=== PATIENT | female | born 1965 | race African-American/Black ===

== ENCOUNTER 2017-05-28 21:55 | Observation (INO) | payer OTHER ==
[~2017-05-28] VITALS: Ht 157.5 cm; Wt 67.7 kg
[~2017-05-28 21:55] MED LIST: AUGMENTIN875 MG PO; CIPRO500 MG PO; LISINOPRIL20 MG PO; METFORMIN HCL500 M4 PO; NORVASC2.5 MG PO; NORVASC5 MG PO
[2017-05-28 22:17] LABS: APPEARANCE CLOUDY ((CLEAR)); BILIRUBIN NEGATIVE; BLOOD NEGATIVE; COLOR YELLOW ((YELLOW)); GLUCOSE (STRIP) NEGATIVE; KETONES NEGATIVE; LEUKOCYTES TRACE; NITRITE NEGATIVE; PROTEIN (STRIP) 30; SPECIFIC GRAVITY 1.016 (1.000-1.030); UROBILINOGEN 0.2 MG/DL (0.2-1.0)
[2017-05-28 22:58] LABS: BACTERIA 3+ /HPF; EPITHELIAL CELLS 2+ /HPF; MUCUS NONE SEEN /LPF; RED BLOOD CELLS 0-5 /HPF (0-5); UCUL ADDED? YES
[2017-05-28 23:02] LABS: HEMATOCRIT 34.3 % (36.0-46.0); HEMOGLOBIN 11.9 G/DL (11.9-15.5); MCH 32.2 PG (29.0-34.0); MCHC 34.7 G/DL (30.0-36.0); PLATELET COUNT 394 K/uL (156-360); RBC DIS.WIDTH-CV 12.7 % (11.8-14.6); RBC DIS.WIDTH-SD 43.2 % (39-53); RED BLOOD COUNT 3.69 M/uL (3.80-5.20); WHITE BLOOD COUNT 5.9 K/uL (4.1-10.2)
[2017-05-28 23:11] LABS: ALBUMIN 4.6 g/dL (3.2-4.8)
[2017-05-28 23:12] LABS: CHLORIDE 96 mEq/L (99-109); POTASSIUM 2.8 mEq/L (3.7-5.4); SODIUM 140 mEq/L (136-147)
[2017-05-28 23:14] LABS: GLUCOSE 167 mg/dL (70-99); TOTAL PROTEIN 7.9 g/dL (6.4-8.3)
[2017-05-28 23:16] LABS: TOTAL BILIRUBIN 0.3 mg/dL (0.0-1.0)
[2017-05-28 23:17] LABS: ALKALINE PHOSPHATASE 117 IU/L (3-129)
[2017-05-28 23:18] LABS: CREATININE 1.4 mg/dL (0.6-1.3); GFR ESTIMATE (CALCULATED) 51 mL/min/
[2017-05-28 23:19] LABS: AST (GOT) 24 IU/L (2-34); DIRECT BILIRUBIN 0.2 mg/dL (0.0-0.3); UREA NITROGEN (BUN) 17 mg/dL (9-23)
[2017-05-28 23:20] LABS: ALT (GPT) 26 IU/L (3-49)
[2017-05-28 23:21] LABS: LIPASE 83 U/L (1.0-51.0)
[2017-05-28 23:23] LABS: TROP-I INTERPRETATION NEGATIVE; TROPONIN-I 0.01 ng/mL (0.0-0.30)
[2017-05-29] MEDS ORDERED: ALIVE WOMEN'S1 EACH PO (00:48)
[2017-05-29] MEDS ORDERED: AMLODIPINE BESYL5 MG PO (00:48)
[2017-05-29] MEDS ORDERED: MELATONIN10 M1 PO (00:48)
[2017-05-29] MEDS ORDERED: ABILIFY2 MG PO (00:49)
[2017-05-29] MEDS ORDERED: SERTRALINE HCL25 MG PO (00:50)
[2017-05-29] MEDS ORDERED: ABILIFY5 MG PO (00:50)
[2017-05-29] MEDS ORDERED: DIOVAN160 MG PO (00:50)
[2017-05-29 04:19] VITALS: BP 162/84
[2017-05-29 06:32] LABS: CHLORIDE 100 MEQ/L (99-109); CREATININE 1.2 MG/DL (0.6-1.3); GFR ESTIMATE (CALCULATED) > 59 mL/min/; GLUCOSE 144 mg/dL (70-99); POTASSIUM 3.3 MEQ/L (3.7-5.4); SODIUM 141 MEQ/L (136-147); UREA NITROGEN (BUN) 15 mg/dL (9-23)
[2017-05-29 08:11] VITALS: BP 132/78
[2017-05-29 11:14] VITALS: BP 144/79
[2017-05-29 15:41] VITALS: BP 175/91
[2017-05-29 18:50] VITALS: BP 168/98
[2017-05-29 23:26] VITALS: BP 187/88
[2017-05-30 01:40] VITALS: BP 174/104
[2017-05-30 03:18] VITALS: BP 167/77
[2017-05-30 05:32] LABS: CHLORIDE 103 MEQ/L (99-109); CREATININE 1.1 MG/DL (0.6-1.3); GFR ESTIMATE (CALCULATED) > 59 mL/min/; GLUCOSE 169 mg/dL (70-99); POTASSIUM 3.8 MEQ/L (3.7-5.4); SODIUM 138 MEQ/L (136-147); UREA NITROGEN (BUN) 20 mg/dL (9-23)
[2017-05-30 07:13] VITALS: BP 168/81
[2017-05-30 11:14] VITALS: BP 143/82
[2017-05-30] MEDS ORDERED: APRESOLINE25 MG PO (12:22)
[2017-05-30] MEDS ORDERED: CEFTIN500 MG PO (12:22)
== END 2017-05-30 13:05 | disposition home or self-care (01) ==
LOC: EME 21:55 → 5WEST 05-29 03:13 → EDOF 05-29 03:13 → ENRESERV 05-29 03:14 → 5WEST 05-29 04:05 → ENPENDDIS 05-30 12:30 → 5WEST 05-30 13:05
PROVIDERS: Emergency Medicine; Hospitalist; Internal Medicine
DX: I67.4 Hypertensive encephalopathy (principal); I12.9 Hypertensive chronic kidney disease with stage 1 through stage 4 chronic kidney disease, or unspecified chronic kidney disease; N18.9 Chronic kidney disease, unspecified; N39.0 Urinary tract infection, site not specified; E11.22 Type 2 diabetes mellitus with diabetic chronic kidney disease; E87.6 Hypokalemia; M19.90 Unspecified osteoarthritis, unspecified site; Z90.710 Acquired absence of both cervix and uterus; Z82.49 Family history of ischemic heart disease and other diseases of the circulatory system; Z83.3 Family history of diabetes mellitus; Z80.3 Family history of malignant neoplasm of breast
CPT/HCPCS: 70450; 71045; 80048; 80076; 81003; 82948; 83690; 84484; 85027; 85652; 87077; 87086; 93005; 99281; 99285; G0378; J0360; J1815; J7512

== ENCOUNTER 2017-07-14 16:09 | Inpatient (IN) | payer OTHER ==
[~2017-07-14] VITALS: Ht 157.5 cm; Wt 68.1 kg
[~2017-07-14 16:09] MED LIST changes: +ABILIFY2 MG PO; +ABILIFY5 MG PO; +ALIVE WOMEN'S1 EACH PO; +AMLODIPINE BESYL5 MG PO; +APRESOLINE25 MG PO; +CEFTIN500 MG PO; +DIOVAN160 MG PO; +MELATONIN10 M1 PO; +SERTRALINE HCL25 MG PO
[2017-07-14 18:02] LABS: HEMATOCRIT 30.7 % (36.0-46.0); HEMOGLOBIN 11.1 G/DL (11.9-15.5); MCH 32.6 PG (29.0-34.0); MCHC 36.2 G/DL (30.0-36.0); MCV 90.3 FL (83-99); PLATELET COUNT 402 K/uL (156-360); RBC DIS.WIDTH-CV 12.5 % (11.8-14.6); WHITE BLOOD COUNT 5.5 K/uL (4.1-10.2)
[2017-07-14 18:16] LABS: CHLORIDE 101 mEq/L (99-109); SODIUM 142 mEq/L (136-147)
[2017-07-14 18:17] LABS: GLUCOSE 190 mg/dL (70-99)
[2017-07-14 18:21] LABS: CREATININE 1.3 mg/dL (0.6-1.3); GFR ESTIMATE (CALCULATED) 56 mL/min/; SERUM ETHYL ALCOHOL < 10 mg/dL
[2017-07-14 18:22] LABS: UREA NITROGEN (BUN) 16 mg/dL (9-23)
[2017-07-14 18:23] LABS: POTASSIUM 2.4 mEq/L (3.7-5.4)
[2017-07-14 18:37] LABS: AMPHETAMINE NEGATIVE (500 ng/mL); BARBITURATES NEGATIVE (200 ng/mL); BENZODIAZEPINES NEGATIVE (150 ng/mL); BUPRENORPHINE NEGATIVE (10 ng/mL); COCAINE NEGATIVE (150 ng/mL); METHADONE NEGATIVE (200 ng/mL); METHAMPHETAMINE NEGATIVE (500 ng/mL); OPIATES (MORPHINE) NEGATIVE (100 ng/mL); OXYCODONE NEGATIVE (100 ng/mL); PHENCYCLIDINE NEGATIVE (25 ng/mL); PROPOXYPHENE NEGATIVE (300 ng/mL); THC CANNABINOIDS NEGATIVE (50 ng/mL); TRICYCLIC ANTIDEPRESSANTS NEGATIVE (300 ng/mL)
[2017-07-14 20:58] VITALS: BP 181/88
[2017-07-15 07:45] VITALS: BP 151/79
[2017-07-15 15:36] VITALS: BP 164/84
[2017-07-16 07:49] VITALS: BP 152/74
[2017-07-16 15:45] VITALS: BP 150/76
[2017-07-17 08:01] VITALS: BP 132/60
[2017-07-17] MEDS ORDERED: MIRTAZAPINE7.5 MG PO (09:54)
== END 2017-07-17 11:31 | disposition home or self-care (01) | DRG 885 ==
LOC: EME 16:09 → 1WEST 18:42 → EDOF 18:42 → ENRESERV 20:39 → 1WEST 20:42
PROVIDERS: Emergency Medicine Emergency Medical Services
DX: F33.1 Major depressive disorder, recurrent, moderate (principal); Z91.14 Patient's other noncompliance with medication regimen; F43.12 Post-traumatic stress disorder, chronic; R45.851 Suicidal ideations; R45.850 Homicidal ideations; I10 Essential (primary) hypertension
CPT/HCPCS: 80048; 85027; 90839; 93005; 97150 GO; 97165 GO; G0480